=== PATIENT | male | born 1965 | race Caucasian/White ===

== ENCOUNTER → 2017-03-31 | Outpatient (CLI) | payer OTHER ==
[~2017-03-31] MED LIST: AMLO5TAB2 PO; ATR20T PO
--- NOTE | 2017-03-31 07:57 | Diagnostic Imaging Report ---
INDICATION: Elevated liver enzymes. TECHNIQUE: Multiple grayscale sonographic images were obtained of the right upper quadrant of the abdomen. CORRELATION STUDY: None FINDINGS: LIVER: Heterogeneous increased echogenicity suggested likely hepatic steatosis. There is normal, hepatopedal direction of flow within the main portal vein. Liver length at 19 cm, borderline enlarged. GALLBLADDER: The gallbladder demonstrates no definitive shadowing gallstones. No abnormal gallbladder wall thickening or pericholecystic fluid. COMMON BILE DUCT: Nondilated at 4 mm. PANCREAS: Visualized portions appearing unremarkable. RIGHT KIDNEY: Measures 11.5 cm. No hydronephrosis. OTHER: None. IMPRESSION: 1. Borderline hepatomegaly with likely changes of hepatic steatosis. Dictated by: Dictated on workstation # [id number]
== END ==
LOC: RAD 06:44
PROVIDERS: ATTEND Nurse Practitioner Family
DX: R93.5 Abnormal findings on diagnostic imaging of other abdominal regions, including retroperitoneum (principal); R79.89 Other specified abnormal findings of blood chemistry
CPT/HCPCS: 76705